=== PATIENT | female | born 1965 | race Caucasian/White ===

== ENCOUNTER 2016-11-03 21:24 | Emergency (ER) | payer MEDICARE, OTHER | END 2016-11-03 23:54 | disposition home or self-care (01) | LOC: ER 21:24 | PROC: 3E0234Z Introduction of Serum, Toxoid and Vaccine into Muscle, Percutaneous Approach (ICD-10-PCS; principal; 2016-11-03) | DX: S61.317A Laceration without foreign body of left little finger with damage to nail, initial encounter (principal); S62.637A Displaced fracture of distal phalanx of left little finger, initial encounter for closed fracture; W23.0XXA Caught, crushed, jammed, or pinched between moving objects, initial encounter; Y92.009 Unspecified place in unspecified non-institutional (private) residence as the place of occurrence of the external cause; G25.81 Restless legs syndrome; F32.9 Major depressive disorder, single episode, unspecified; F43.10 Post-traumatic stress disorder, unspecified; Z88.0 Allergy status to penicillin; Z88.2 Allergy status to sulfonamides; Z88.8 Allergy status to other drugs, medicaments and biological substances; Z23 Encounter for immunization; Z79.899 Other long term (current) drug therapy; Z79.891 Long term (current) use of opiate analgesic | CPT/HCPCS: 11760; 73140; 90471; 90715; 99070; 99283; 99283-25 ==

== ENCOUNTER 2016-11-04 09:50 | Emergency (ER) | payer MEDICARE, OTHER | END 2016-11-04 10:11 | disposition home or self-care (01) | LOC: ER 09:50 | DX: S67.197D Crushing injury of left little finger, subsequent encounter (principal); X58.XXXD Exposure to other specified factors, subsequent encounter; Z88.0 Allergy status to penicillin; Z88.8 Allergy status to other drugs, medicaments and biological substances | CPT/HCPCS: 99070; 99282 ==